=== PATIENT | female | born 2000 ===

== ENCOUNTER 2021-11-03 20:17 | Emergency (ER) | payer OTHER ==
[2021-11-03 20:26] VITALS: TEMP 98.4; BMI 23.9
[2021-11-03] MEDS ORDERED: KETOROLAC TROMETHAMINE 30 MG/1 ML VIAL IVPUSH ONE (21:42)
[2021-11-03] MEDS ORDERED: KETOROLAC TROMETHAMINE 30 MG/1 ML VIAL ONE (21:47)
[2021-11-03 22:14] LABS: HEMATOCRIT 37.7 % (32.4-45.2); HEMOGLOBIN 12.8 GM/dL (10.7-15.3); MCH 31.7 pg (25.7-33.7); MEAN CELL VOLUME 93.2 fl (80-96); MEAN PLT VOLUME 10.7 fl (7.5-11.1); PLATELET COUNT 222 10^3/uL (134-434); RBC 4.05 M/mm3 (3.60-5.2); RDW 13.7 % (11.6-15.6); WHITE BLOOD COUNT 5.4 K/mm3 (4.0-10.0)
[2021-11-03 22:31] LABS: ALBUMIN 4.6 g/dl (3.4-5.0); BLOOD UREA NITROGEN 10.6 mg/dL (7-18)
[2021-11-03 22:34] LABS: CREATININE 0.7 mg/dL (0.55-1.3)
[2021-11-03 22:35] LABS: BILIRUBIN,TOTAL 0.3 mg/dL (0.2-1)
[2021-11-03 22:36] LABS: TOT PROT 8.1 g/dl (6.4-8.2)
[2021-11-03 23:29] VITALS: BP 113/71; PULSE 75
== END 2021-11-03 23:29 | disposition home or self-care (01) ==
LOC: JER 20:17
PROC: 3E0333Z Introduction of Anti-inflammatory into Peripheral Vein, Percutaneous Approach (ICD-10-PCS; principal; 2021-11-03)
DX: R07.9 Chest pain, unspecified (principal)
CPT/HCPCS: 36415; 71046-TC-FY; 80053; 84484; 85027; 93005; 93010; 93308; 99285-25

== ENCOUNTER 2022-09-13 22:13 | Emergency (ER) | payer OTHER ==
[2022-09-13 22:23] VITALS: BP 103/71; PULSE 83; RESP 18; TEMP 97; BMI 24.4
[2022-09-13] MEDS ORDERED: KETOROLAC TROMETHAMINE 30 MG/1 ML VIAL IM ONE (23:28)
[2022-09-13] MEDS ORDERED: LIDOCAINE 5% TOPICAL PATCH TP ONE (23:28)
[2022-09-13] MEDS ORDERED: LIDOCAINE 5% TOPICAL PATCH ONE (23:40)
[2022-09-14] MEDS ORDERED: ACETAMINOPHEN 500 MG TABLET (FP) PO ONE (00:02)
[2022-09-14] MEDS ORDERED: ACETAMINOPHEN 325 MG TABLET (FP) ONE (00:16)
[2022-09-14] MEDS ORDERED: KETOROLAC TROMETHAMINE 30 MG/1 ML VIAL ONE (01:00)
[2022-09-14] MEDS ORDERED: METHOCARBAMOL 500 MG TABLET PO ONE (01:14)
[2022-09-14] MEDS ORDERED: METHOCARBAMOL 500 MG TABLET ONE (01:39)
== END 2022-09-14 01:46 | disposition home or self-care (01) ==
LOC: JER 22:13
PROC: 3E023GC Introduction of Other Therapeutic Substance into Muscle, Percutaneous Approach (ICD-10-PCS; principal; 2022-09-13)
DX: R51.9 Headache, unspecified (principal); M54.2 Cervicalgia; V49.50XA Passenger injured in collision with unspecified motor vehicles in traffic accident, initial encounter
CPT/HCPCS: 70450-TC; 72125-TC; 72128-TC; 84703; 96372; 99284-25